=== PATIENT | male | born 1955 | race Caucasian/White ===

== ENCOUNTER 2017-04-25 23:03 | Inpatient (IN) | payer SELFPAY ==
[2017-04-25 23:36] LABS: ADD MAN DIFF? NO
[2017-04-25 23:41] LABS: BASO # 0.1 x10^3/uL (0.0-0.2); BASO % 1 % (0-3); EOS % 0 % (0-3); HEMATOCRIT 42.9 % (39.0-53.0); HEMOGLOBIN 14.5 g/dL (13.0-17.5); LYMPH # 1.6 x10^3/uL (1.0-4.8); LYMPH % 11 % (24-48); MEAN CORPUSCULAR HEMOGLOBIN 32 pg (25-35); MEAN CORPUSCULAR HGB CONC 34 g/dL (31-37); MEAN CORPUSCULAR VOLUME 96 fL (79-100); MONO # 1.2 x10^3/uL (0.0-1.1); MONO % 8 % (0-9); NEUT # 11.4 x10^3uL (1.8-7.7); NEUT % 80 % (31-73); PLATELET COUNT 260 x10^3/uL (140-400); RED BLOOD COUNT 4.48 x10^6/uL (4.30-5.70); RED CELL DISTRIBUTION WIDTH 13.3 % (11.5-14.5); WHITE BLOOD COUNT 14.3 x10^3/uL (4.0-11.0)
[2017-04-25 23:51] LABS: INFLUENZA A PATIENT NEGATIVE (NEGATIVE); INFLUENZA B PATIENT NEGATIVE (NEGATIVE); OBC FLU VALID
[2017-04-26] LABS: ANION GAP 4 (6-14); BLOOD UREA NITROGEN 14 mg/dL (8-26); BUN/CREATININE RATIO 11 (6-20); CALCIUM 8.7 mg/dL (8.5-10.1); CARBON DIOXIDE 33 mmol/L (21-32); CHLORIDE 102 mmol/L (98-107); CREATININE 1.3 mg/dL (0.7-1.3); GFR 55.9; GLUCOSE 97 mg/dL (70-99); SODIUM 139 mmol/L (136-145)
[2017-04-26 00:04] LABS: NT-PRO BNP 46 pg/mL (0-124); TROPONINI < 0.017 ng/mL (0.000-0.055)
[2017-04-26 00:04] LABS: ALBUMIN 3.3 g/dL (3.4-5.0); ALBUMIN/GLOBULIN RATIO 0.8 (1.0-1.7); ALK PHOS 45 U/L (46-116); ALT (SGPT) 32 U/L (16-63); AST (SGOT) 28 U/L (15-37); CKMB INDEX 0.5 % (0-4); CKMB MASS 2.4 ng/mL (0.0-3.6); CREATINE KINASE 504 U/L (39-308); LIPASE 135 U/L (73-393); TOTAL BILIRUBIN 0.4 mg/dL (0.2-1.0); TOTAL PROTEIN 7.5 g/dL (6.4-8.2)
[2017-04-26 00:11] LABS: LACTIC ACID 2.1 mmol/L (0.4-2.0)
[2017-04-26] MEDS: IBUPROFEN 800 MG TABLET. PO (00:14)
[2017-04-26] MEDS: ACETAMINOPHEN 500 MG TABLET PO (00:15)
[2017-04-26] MEDS: IPRATRPIUM/ALBUTEROL 0.5/2.5MG 3 ML NEBU. NEB ×4 (00:22→19:53)
[2017-04-26] MEDS: IV NORMAL SALINE 1000ML BAG 500 ML IV (00:30)
[2017-04-26] MEDS ORDERED: ONDANSETRON PF 4 MG/2 ML VIAL. IV ×2 (00:30→10:00)
[2017-04-26 01:23] LABS: LACTIC ACID 2.1 mmol/L (0.4-2.0)
[2017-04-26] MEDS: IV NORMAL SALINE 1000ML BAG 1,000 ML IV (01:35)
[2017-04-26] MEDS: AZITHROMYCIN 250 MG TABLET. PO (01:35)
[2017-04-26] MEDS ORDERED: IPRATRPIUM/ALBUTEROL 0.5/2.5MG 3 ML NEBU. NEB (04:00)
[2017-04-26] MEDS ORDERED: ACETAMINOPHEN 325 MG TABLET. PO (10:00)
[2017-04-26] MEDS ORDERED: DEXTROSE 50% 25 GM / 50ML DISP.SYRIN. IV (10:15)
[2017-04-26] MEDS: PANTOPRAZOLE 40 MG TABLET.DR. PO (10:53)
[2017-04-26] MEDS: LINAGLIPTIN 5 MG TABLET PO (10:53)
[2017-04-26] MEDS: INSULIN DETEMIR 300 UNITS/3 ML INSULN.PEN. SQ ×2 (11:06→21:11)
[2017-04-26] MEDS: INSULIN ASPART 300 UNITS/3 ML INSULN.PEN SQ ×2 (12:31→17:01)
[2017-04-26 16:40] LABS: POC GLUCOSE 188 mg/dL (70-99)
[2017-04-26 16:40] LABS: POC GLUCOSE 191 mg/dL (70-99)
[2017-04-26 16:40] LABS: POC GLUCOSE 173 mg/dL (70-99)
[2017-04-26] MEDS: glyBURIDE 5 MG TABLET PO (16:55)
[2017-04-26 20:52] LABS: POC GLUCOSE 186 mg/dL (70-99)
[2017-04-26] MEDS: LACTOBACILLUS RHAMNOSUS GG 1 CAPSULE. PO (21:08)
[2017-04-26] MEDS: BENZONATATE 100 MG CAPSULE. PO (21:49)
[2017-04-26] MEDS: ZOLPIDEM 5 MG TABLET. PO (21:49)
[2017-04-27 04:50] LABS: ADD MAN DIFF? NO
[2017-04-27 05:01] LABS: BASO % 0 % (0-3); EOS # 0.1 x10^3/uL (0.0-0.7); EOS % 1 % (0-3); HEMATOCRIT 39.4 % (39.0-53.0); HEMOGLOBIN 12.9 g/dL (13.0-17.5); LYMPH # 2.4 x10^3/uL (1.0-4.8); LYMPH % 26 % (24-48); MEAN CORPUSCULAR HEMOGLOBIN 32 pg (25-35); MEAN CORPUSCULAR HGB CONC 33 g/dL (31-37); MEAN CORPUSCULAR VOLUME 96 fL (79-100); MONO % 11 % (0-9); NEUT # 5.6 x10^3uL (1.8-7.7); NEUT % 61 % (31-73); PLATELET COUNT 223 x10^3/uL (140-400); RED BLOOD COUNT 4.09 x10^6/uL (4.30-5.70); RED CELL DISTRIBUTION WIDTH 13.5 % (11.5-14.5); WHITE BLOOD COUNT 9.2 x10^3/uL (4.0-11.0)
[2017-04-27 05:21] LABS: ANION GAP 6 (6-14); BLOOD UREA NITROGEN 17 mg/dL (8-26); CALCIUM 8.3 mg/dL (8.5-10.1); CARBON DIOXIDE 30 mmol/L (21-32); CHLORIDE 105 mmol/L (98-107); GFR 75.7; GLUCOSE 85 mg/dL (70-99); POTASSIUM 3.6 mmol/L (3.5-5.1); SODIUM 141 mmol/L (136-145)
[2017-04-27 05:56] LABS: LACTIC ACID 1.5 mmol/L (0.4-2.0)
[2017-04-27] MEDS: cefTRIAXone IV Push 1 GM VIAL. IVP (06:14)
[2017-04-27] MEDS: PANTOPRAZOLE 40 MG TABLET.DR. PO (06:18)
[2017-04-27] MEDS: IPRATRPIUM/ALBUTEROL 0.5/2.5MG 3 ML NEBU. NEB ×4 (07:40→20:10)
[2017-04-27] MEDS: INSULIN ASPART 300 UNITS/3 ML INSULN.PEN SQ ×3 (08:00→17:00)
[2017-04-27] MEDS ORDERED: AZITHROMYCIN 500 MG in IV NORMAL SALINE 250ML 250 ML IV (08:00)
[2017-04-27] MEDS: LACTOBACILLUS RHAMNOSUS GG 1 CAPSULE. PO ×2 (08:47→21:13)
[2017-04-27] MEDS: glyBURIDE 5 MG TABLET PO ×2 (08:48→17:27)
[2017-04-27] MEDS: LINAGLIPTIN 5 MG TABLET PO (08:48)
[2017-04-27] MEDS: AZITHROMYCIN 250 MG TABLET. PO (08:48)
[2017-04-27] MEDS: INSULIN DETEMIR 300 UNITS/3 ML INSULN.PEN. SQ ×2 (08:52→21:17)
[2017-04-27] MEDS ORDERED: CONTRAST GIVEN MC (10:00)
[2017-04-27] MEDS: IOHEXOL 300 MG/ML 100ML VIAL. IV (10:29)
[2017-04-27 11:14] LABS: POC GLUCOSE 235 mg/dL (70-99)
[2017-04-27 16:42] LABS: POC GLUCOSE 108 mg/dL (70-99)
[2017-04-27] MEDS: BENZONATATE 100 MG CAPSULE. PO (21:14)
[2017-04-27 21:24] LABS: POC GLUCOSE 118 mg/dL (70-99)
[2017-04-27] MEDS: ZOLPIDEM 5 MG TABLET. PO (23:34)
[2017-04-28] MEDS: cefTRIAXone IV Push 1 GM VIAL. IVP (05:42)
[2017-04-28] MEDS: PANTOPRAZOLE 40 MG TABLET.DR. PO (05:43)
[2017-04-28] MEDS: IPRATRPIUM/ALBUTEROL 0.5/2.5MG 3 ML NEBU. NEB ×4 (07:22→20:29)
[2017-04-28 08:10] LABS: POC GLUCOSE 163 mg/dL (70-99)
[2017-04-28] MEDS: glyBURIDE 5 MG TABLET PO ×2 (08:23→17:45)
[2017-04-28] MEDS: AZITHROMYCIN 250 MG TABLET. PO (08:23)
[2017-04-28] MEDS: LINAGLIPTIN 5 MG TABLET PO (08:23)
[2017-04-28] MEDS: methylPREDNISolone SOD SUCC PF 40 MG/ML VIAL. IV (08:24)
[2017-04-28] MEDS: INSULIN ASPART 300 UNITS/3 ML INSULN.PEN SQ ×5 (08:29→21:25)
[2017-04-28] MEDS: INSULIN DETEMIR 300 UNITS/3 ML INSULN.PEN. SQ ×2 (08:30→21:25)
[2017-04-28] MEDS: LACTOBACILLUS RHAMNOSUS GG 1 CAPSULE. PO ×2 (09:00→21:36)
[2017-04-28 12:13] LABS: POC GLUCOSE 123 mg/dL (70-99)
[2017-04-28 12:16] LABS: POC GLUCOSE 231 mg/dL (70-99)
[2017-04-28 17:22] LABS: POC GLUCOSE 380 mg/dL (70-99)
[2017-04-28 21:07] LABS: POC GLUCOSE 409 mg/dL (70-99)
[2017-04-28] MEDS: ZOLPIDEM 5 MG TABLET. PO (21:36)
[2017-04-29 00:15] LABS: LEGIONELLA AG UR Negative (Negative)
[2017-04-29 00:15] LABS: SPECIMEN SOURCE Urine (.); STREP PNEUMO ANTIGEN Negative (Negative)
[2017-04-29 06:16] LABS: ADD MAN DIFF? NO
[2017-04-29 06:19] LABS: BASO # 0.1 x10^3/uL (0.0-0.2); BASO % 1 % (0-3); EOS % 0 % (0-3); HEMATOCRIT 39.4 % (39.0-53.0); HEMOGLOBIN 12.8 g/dL (13.0-17.5); LYMPH # 2.2 x10^3/uL (1.0-4.8); LYMPH % 21 % (24-48); MEAN CORPUSCULAR HEMOGLOBIN 31 pg (25-35); MEAN CORPUSCULAR HGB CONC 33 g/dL (31-37); MEAN CORPUSCULAR VOLUME 97 fL (79-100); MONO # 0.9 x10^3/uL (0.0-1.1); MONO % 9 % (0-9); NEUT # 7.3 x10^3uL (1.8-7.7); NEUT % 70 % (31-73); PLATELET COUNT 273 x10^3/uL (140-400); RED BLOOD COUNT 4.07 x10^6/uL (4.30-5.70); RED CELL DISTRIBUTION WIDTH 13.3 % (11.5-14.5); WHITE BLOOD COUNT 10.5 x10^3/uL (4.0-11.0)
[2017-04-29 06:29] LABS: ANION GAP 6 (6-14); BLOOD UREA NITROGEN 22 mg/dL (8-26); CALCIUM 8.6 mg/dL (8.5-10.1); CARBON DIOXIDE 30 mmol/L (21-32); CHLORIDE 102 mmol/L (98-107); GFR 75.7; GLUCOSE 228 mg/dL (70-99); POTASSIUM 3.9 mmol/L (3.5-5.1); SODIUM 138 mmol/L (136-145)
[2017-04-29] MEDS: cefTRIAXone IV Push 1 GM VIAL. IVP (06:37)
[2017-04-29] MEDS: IPRATRPIUM/ALBUTEROL 0.5/2.5MG 3 ML NEBU. NEB ×3 (07:05→15:14)
[2017-04-29 08:14] LABS: POC GLUCOSE 204 mg/dL (70-99)
[2017-04-29] MEDS: glyBURIDE 5 MG TABLET PO (08:47)
[2017-04-29] MEDS: methylPREDNISolone SOD SUCC PF 40 MG/ML VIAL. IV (08:48)
[2017-04-29] MEDS: PANTOPRAZOLE 40 MG TABLET.DR. PO (08:48)
[2017-04-29] MEDS: LACTOBACILLUS RHAMNOSUS GG 1 CAPSULE. PO (08:48)
[2017-04-29] MEDS: AZITHROMYCIN 250 MG TABLET. PO (08:48)
[2017-04-29] MEDS: LINAGLIPTIN 5 MG TABLET PO (08:48)
[2017-04-29] MEDS: INSULIN DETEMIR 300 UNITS/3 ML INSULN.PEN. SQ (08:57)
[2017-04-29 11:58] LABS: POC GLUCOSE 301 mg/dL (70-99)
[2017-04-29] MEDS: INSULIN ASPART 300 UNITS/3 ML INSULN.PEN SQ (13:13)
[2017-04-29] MEDS ORDERED: INSULIN ASPART 300 UNITS/3 ML INSULN.PEN SQ (15:15)
== END 2017-04-29 12:28 | disposition home or self-care (01) | DRG 871 ==
LOC: ER 04-26 01:38 → 4 NORTH 04-26 00:15
DX: A41.9 Sepsis, unspecified organism (principal); J96.01 Acute respiratory failure with hypoxia; J18.9 Pneumonia, unspecified organism; E11.9 Type 2 diabetes mellitus without complications; E78.00 Pure hypercholesterolemia, unspecified; E78.5 Hyperlipidemia, unspecified; I10 Essential (primary) hypertension; Z79.84 Long term (current) use of oral hypoglycemic drugs; E66.9 Obesity, unspecified; Z68.38 Body mass index [BMI] 38.0-38.9, adult; Z71.89 Other specified counseling
CPT/HCPCS: 36415; 71045; 71260; 80048; 80053; 82553; 82962; 83605; 83690; 83880; 84484; 85025; 87040; 87070; 87205; 87449; 87804; 87804-59; 93005; 93306; 94640; 94760; 96361; 96365; 99285; 99285-25; G0238; J0690; J0696; J1815; J2920; J7030; J7620; Q0144; Q9967

== ENCOUNTER 2017-05-03 01:38 | Emergency (ER) | payer SELFPAY ==
[2017-05-03 02:38] LABS: ADD MAN DIFF? NO
[2017-05-03 02:39] LABS: BASO # 0.1 x10^3/uL (0.0-0.2); BASO % 1 % (0-3); EOS # 0.1 x10^3/uL (0.0-0.7); EOS % 1 % (0-3); HEMATOCRIT 47.3 % (39.0-53.0); HEMOGLOBIN 15.7 g/dL (13.0-17.5); LYMPH # 2.5 x10^3/uL (1.0-4.8); LYMPH % 17 % (24-48); MEAN CORPUSCULAR HEMOGLOBIN 32 pg (25-35); MEAN CORPUSCULAR HGB CONC 33 g/dL (31-37); MEAN CORPUSCULAR VOLUME 96 fL (79-100); MONO # 1.3 x10^3/uL (0.0-1.1); MONO % 9 % (0-9); NEUT # 10.5 x10^3uL (1.8-7.7); NEUT % 72 % (31-73); PLATELET COUNT 337 x10^3/uL (140-400); RED BLOOD COUNT 4.93 x10^6/uL (4.30-5.70); RED CELL DISTRIBUTION WIDTH 13.1 % (11.5-14.5); WHITE BLOOD COUNT 14.5 x10^3/uL (4.0-11.0)
[2017-05-03] MEDS: HYDROcodone/APAP 5/325MG 1 TAB TABLET PO ×2 (02:42)
[2017-05-03 03:17] LABS: ANION GAP 7 (6-14); BLOOD UREA NITROGEN 17 mg/dL (8-26); CALCIUM 8.9 mg/dL (8.5-10.1); CARBON DIOXIDE 31 mmol/L (21-32); CHLORIDE 99 mmol/L (98-107); CREATININE 1.3 mg/dL (0.7-1.3); GFR 55.9; GLUCOSE 281 mg/dL (70-99); POTASSIUM 4.3 mmol/L (3.5-5.1); SODIUM 137 mmol/L (136-145)
[2017-05-03 03:28] LABS: TROPONINI < 0.017 ng/mL (0.000-0.055)
[2017-05-03 03:30] LABS: NT-PRO BNP 62 pg/mL (0-124)
[2017-05-03] MEDS ORDERED: MORPHINE SULFATE 4 MG/ML DISP.SYRIN. IV ×2 (04:14)
[2017-05-03] MEDS: KETOROLAC 15 MG/ML VIAL. IV ×2 (05:13)
== END 2017-05-03 05:32 | disposition home or self-care (01) ==
LOC: ER 01:38
DX: R07.89 Other chest pain (principal); E78.00 Pure hypercholesterolemia, unspecified; I10 Essential (primary) hypertension
CPT/HCPCS: 36415; 71046; 80048; 83880; 84484; 85025; 93005; 96374; 99285-25; J1885

== ENCOUNTER 2017-08-23 19:13 | Emergency (ER) | payer SELFPAY ==
[2017-08-23] MEDS ORDERED: CONTRAST GIVEN. MC (20:00)
[2017-08-23 20:05] LABS: ADD MAN DIFF? NO
[2017-08-23 20:07] LABS: BASO # 0.1 x10^3/uL (0.0-0.2); BASO % 1 % (0-3); EOS # 0.1 x10^3/uL (0.0-0.7); EOS % 1 % (0-3); HEMATOCRIT 46.1 % (39.0-53.0); HEMOGLOBIN 15.4 g/dL (13.0-17.5); LYMPH # 2.2 x10^3/uL (1.0-4.8); LYMPH % 19 % (24-48); MEAN CORPUSCULAR HEMOGLOBIN 32 pg (25-35); MEAN CORPUSCULAR HGB CONC 34 g/dL (31-37); MEAN CORPUSCULAR VOLUME 96 fL (79-100); MONO # 0.8 x10^3/uL (0.0-1.1); MONO % 7 % (0-9); NEUT # 8.5 x10^3uL (1.8-7.7); NEUT % 73 % (31-73); PLATELET COUNT 252 x10^3/uL (140-400); RED BLOOD COUNT 4.82 x10^6/uL (4.30-5.70); RED CELL DISTRIBUTION WIDTH 14.1 % (11.5-14.5); WHITE BLOOD COUNT 11.7 x10^3/uL (4.0-11.0)
[2017-08-23] MEDS: MORPHINE SULFATE 4 MG/ML DISP.SYRIN. IV/SQ ×3 (20:08→21:35)
[2017-08-23 20:17] LABS: INR 1.1 (0.8-1.1); PARTIAL THROMBOPLASTIN TIME 31 SEC (24-38); PROTHROMBIN TIME PATIENT 13.9 SEC (11.7-14.0)
[2017-08-23 20:26] LABS: ANION GAP 10 (6-14); BLOOD UREA NITROGEN 24 mg/dL (8-26); BUN/CREATININE RATIO 17 (6-20); CALCIUM 9.3 mg/dL (8.5-10.1); CARBON DIOXIDE 28 mmol/L (21-32); CHLORIDE 107 mmol/L (98-107); CREATININE 1.4 mg/dL (0.7-1.3); GFR 51.2; GLUCOSE 215 mg/dL (70-99); POTASSIUM 4.4 mmol/L (3.5-5.1); SODIUM 145 mmol/L (136-145)
[2017-08-23] MEDS: IOHEXOL 300 MG/ML 100ML VIAL. IV (20:30)
[2017-08-23 20:31] LABS: ALBUMIN 3.8 g/dL (3.4-5.0); ALK PHOS 51 U/L (46-116); ALT (SGPT) 41 U/L (16-63); AST (SGOT) 26 U/L (15-37); LIPASE 145 U/L (73-393); TOTAL BILIRUBIN 0.3 mg/dL (0.2-1.0); TOTAL PROTEIN 7.7 g/dL (6.4-8.2)
[2017-08-23] MEDS: IV NORMAL SALINE 1000ML BAG 1,000 ML IV (20:35)
== END 2017-08-23 22:00 | disposition home or self-care (01) ==
LOC: ER 19:13
DX: S22.42XA Multiple fractures of ribs, left side, initial encounter for closed fracture (principal); R10.9 Unspecified abdominal pain; E11.9 Type 2 diabetes mellitus without complications; E78.00 Pure hypercholesterolemia, unspecified; I10 Essential (primary) hypertension; W01.0XXA Fall on same level from slipping, tripping and stumbling without subsequent striking against object, initial encounter; Y93.89 Activity, other specified; Y92.89 Other specified places as the place of occurrence of the external cause; Y99.8 Other external cause status
CPT/HCPCS: 36415; 71101; 74177; 80053; 83690; 85025; 85610; 85730; 96374; 96376; 99285-25; J2270; J7030; Q9967

== ENCOUNTER 2020-05-26 10:17 | Inpatient (IN) | payer MEDICARE ==
[~2020-05-26] VITALS: Ht 190.5 cm; Wt 132.3 kg
[~2020-05-26 10:17] MED LIST: ACET1TAB33 PO; AMLO-186 PO; AMLO1TAB5 PO; CHOL500016 PO; GLYB5TAB3 PO; INSU100I13 SQ; LEVO500T59 PO; LIDO700A21 TP; LISI1TAB20 PO; OXYC1TAB15 PO; RANI150C PO; SITA1TAB11 PO
[2020-05-26] MEDS ORDERED: ASPIRIN CHEWABLE 81 MG TABLET. PO ONE (10:45)
[2020-05-26 11:11] LABS: BASO # 0.1 x10^3/uL (0.0-0.2); BASO % 1 % (0-3); EOS # 0.2 x10^3/uL (0.0-0.7); EOS % 2 % (0-3); HEMATOCRIT 46.7 % (39.0-53.0); HEMOGLOBIN 15.6 g/dL (13.0-17.5); LYMPH # 2.5 x10^3/uL (1.0-4.8); LYMPH % 31 % (24-48); MEAN CORPUSCULAR HEMOGLOBIN 32 pg (25-35); MEAN CORPUSCULAR HGB CONC 33 g/dL (31-37); MEAN CORPUSCULAR VOLUME 95 fL (79-100); MONO # 0.7 x10^3/uL (0.0-1.1); MONO % 8 % (0-9); NEUT # 4.8 x10^3/uL (1.8-7.7); NEUT % 58 % (31-73); PLATELET COUNT 178 x10^3/uL (140-400); RED CELL DISTRIBUTION WIDTH 13.1 % (11.5-14.5); WHITE BLOOD COUNT 8.3 x10^3/uL (4.0-11.0)
[2020-05-26 11:15] LABS: CALCIUM 8.5 mg/dL (8.5-10.1); CREATININE 0.9 mg/dL (0.7-1.3); GFR 84.7; POTASSIUM 4.3 mmol/L (3.5-5.1)
--- NOTE | 2020-05-26 11:37 | RAD ---
Chest, PA and Lateral: Technique: PA and lateral views of the chest were obtained. History: Chest pain. Comparison: None. Findings: The heart and pulmonary vasculature appear within normal limits. The lungs are clear. The pleural ma rgins are clear. Mild degenerative changes thoracic spine. Impression: No acute chest process is seen. Electronically signed by: Ganesh Yan MD (05/26/2020 11:34 AM) [id number]
--- NOTE | 2020-05-26 12:08 | EKG ---
[facility] [address] [place] [address] Test Date: 2020-05-26 Test Time: 10:31:06 Pat Name: BLANCA LEON Department: Room: Gender: M [employer] Hel[employer]: : 1955 Requested By: JUSTIN ALARCON Order Number: [id number] Reading MD: Measurements Intervals Irving Rate: 61 P: 50 DE: 268 QRS: -90 QRSD: 130 T: 31 QT: 484 QTc: 494 Interpretive Statements SINUS RHYTHM PROLONGED DE INTERVAL ABNORMAL LEFT AXIS DEVIATION S1,S2,S3 PATTERN LEFT ANTERIOR FASCICULAR BLOCK NON SPECIFIC INTRAVENTRICULAR BLOCK QRS(T) CONTOUR ABNORMALITY CONSIDER ANTEROSEPTAL MYOCARDIAL DAMAGE ABNORMAL ECG RI6.02 No previous ECG available for comparison
--- NOTE | 2020-05-26 13:04 | ED.ADGEN ---
Past Medical History Past Medical History: Diabetes-Type II, Hypertension Additional Past Medical Histor: dyslipidemia Past Surgical History: No Surgical History Additional Past Surgical Histo: Knee Smoking Status: Never Smoker Alcohol Use: None Drug Use: None General Adult EDM: Chief Complaint: CHEST WALL PAIN HPI: HPI: Patient is 64-year-old male who presents to the emergency room complaining of chest pain. Patient states that his left-sided upper chest pain that feels like an aching pain and has been constant for 4 days. He states he got progressively worse last night and he was unable to get any sleep. He has never had pain like this previously. He states when it started he was not doing anything strenuous he was just driving in his truck. He states he has a friend who had similar pain who from a heart attack. He does have some intermittent shortness of breath. He also has some intermittent leg swelling typically in the right leg. He denies any cough, URI symptoms, fever, chills, sweats, abdominal pain, nausea, vomiting, dizziness. He has never had a cardiac evaluation previously. He does not know of any kind of cardiac history. He states he does have diabetes. Review of Systems: Review of Systems: Complete ROS is negative unless otherwise documented in HPI Current Medications: Current Medications Medications (Trade) Dose Ordered Sig/Quentin Start Time Stop Time Status Last Admin Dose Admin Aspirin (Aspirin Chewable) 324 mg 1X ONCE 05/26/20 10:45 05/26/20 10:46 DC 05/26/20 11:32 324 MG Allergies: Allergies: Allergies Coded Allergies Type Severity Reaction Last Updated Verified No Known Drug Allergies 05/03/17 No Physical Exam: PE: General: Awake, alert, NAD. Well Nourished, well hydrated. Cooperative HEENT: Atraumatic, EOMI, PERRL, airway patent, moist oral mucosa Neck: Supple, trachea midline Respiratory: CTA bilaterally, normal effort, no wheezing/crackles, left-sided chest tenderness CV: RRR, no murmur, cap refill <2 GI: Soft, nondistended, nontender, no masses MSK: No obvious deformities Skin: Warm, dry, intact Neuro: A&O x3, speech NL, sensory and motor grossly intact, no focal deficits Psych: Normal affect, normal mood, not suicidal or homicidal Current Patient Data: Labs: Laboratory Tests Test 05/26/20 11:00 White Blood Count 8.3 x10^3/uL (4.0-11.0) Red Blood Count 4.90 x10^6/uL (4.30-5.70) Hemoglobin 15.6 g/dL (13.0-17.5) Hematocrit 46.7 % (39.0-53.0) Mean Corpuscular Volume 95 fL (79-100) Mean Corpuscular Hemoglobin 32 pg (25-35) Mean Corpuscular Hemoglobin Concent 33 g/dL (31-37) Red Cell Distribution Width 13.1 % (11.5-14.5) Platelet Count 178 x10^3/uL (140-400) Neutrophils (%) (Auto) 58 % (31-73) Lymphocytes (%) (Auto) 31 % (24-48) Monocytes (%) (Auto) 8 % (0-9) Eosinophils (%) (Auto) 2 % (0-3) Basophils (%) (Auto) 1 % (0-3) Neutrophils # (Auto) 4.8 x10^3/uL (1.8-7.7) Lymphocytes # (Auto) 2.5 x10^3/uL (1.0-4.8) Monocytes # (Auto) 0.7 x10^3/uL (0.0-1.1) Eosinophils # (Auto) 0.2 x10^3/uL (0.0-0.7) Basophils # (Auto) 0.1 x10^3/uL (0.0-0.2) Sodium Level 140 mmol/L (136-145) Potassium Level 4.3 mmol/L (3.5-5.1) Chloride Level 105 mmol/L (98-107) Carbon Dioxide Level 30 mmol/L (21-32) Anion Gap 5 (6-14) L Blood Urea Nitrogen 12 mg/dL (8-26) Creatinine 0.9 mg/dL (0.7-1.3) Estimated GFR (Cockcroft-Gault) 84.7 Glucose Level 180 mg/dL (70-99) H Calcium Level 8.5 mg/dL (8.5-10.1) Troponin I Quantitative < 0.017 ng/mL (0.000-0.055) Laboratory Tests 05/26/20 11:00 Laboratory Tests 05/26/20 11:00 Vital Signs: Vital Signs Date Time Temp Pulse Resp B/P (MAP) Pulse Ox O2 Delivery O2 Flow Rate FiO2 05/26/20 10:40 98.0 57 17 147/82 (103) 97 Room Air 98.0 EKG: EKG: [] Heart Score: Risk Factors: Risk Factors: DM, Current or recent (<one month) smoker, HTN, HLP, family history of CAD, obesity. Risk Scores: Score 0 - 3: 2.5% MACE over next 6 weeks - Discharge Home Score 4 - 6: 20.3% MACE over next 6 weeks - Admit for Clinical Observation Score 7 - 10: 72.7% MACE over next 6 weeks - Early Invasive Strategies Radiology/Procedures: Radiology/Procedures: [] Course & Med Decision Making: Course & Med Decision Making Pertinent Labs and Imaging studies reviewed. (See chart for details) Patient is a 64 year-old male who presents to the Emergency Room complaining of chest pain and intermittent shortness of breath. History is significant for diabetes. At this time, given patient's risk factors and story there is concern for possible cardiac pathology. EKG was ordered and shows right bundle inocente block and bifascicular block. At this time there is no signs of STEMI, pericarditis, or unstable arrthymia on EKG. Patient has received aspirin today. CBC, BMP, troponin, CXR were ordered to evaluate for causes of chest pain including ACS, anemia, electrolyte abnormalities that can lead to arrhythmias, PTX, pneumonia, pneumomediastinum. Patient does not have any abdominal tenderness that would suggest pancreaititis or cholecystitis and does not need an abdominal work up at this time. Patient's HEART score is 5 placing the patient at moderate risk. At this time patient will be admitted for further evaluation and care. Dragon Disclaimer: Dragon Disclaimer: This electronic medical record was generated, in whole or in part, using a voice recognition dictation system. Departure Departure Impression: Primary Impression: Chest pain Disposition: ADMITTED INPT THIS HOSP Condition: STABLE Referrals: NO PCP (PCP) JUSTIN ALARCON MD May 26, 2020 13:04
--- NOTE | 2020-05-26 13:11 | RAD ---
US DPLX VENOUS EXTREMITY LOWER RT 05/26/2020 12:41 PM Clinical Information: Swelling, pain Comparison: None. Technique: Multiple grayscale, color Doppler, and spectral Doppler sonographic images of the lower ex tremity venous structures were obtained. Findings: The right common femoral, femoral, and popliteal veins exhibit normal compression, respiratory phasic ity, and augmentation. No intraluminal thrombi are identified. Color Doppler flow is demonstrated in the right posterior tibial veins. Greater saphenous veins are patent at the saphenofemoral junction. Impression: 1. No evidence of deep venous thrombosis. Electronically signed by: Reshma Blankenship MD (05/26/2020 1:08 PM) [id number]
[2020-05-26] MEDS ORDERED: BISACODYL 10 MG SUPP.RECT. PR PRN (13:15)
[2020-05-26] MEDS ORDERED: MORPHINE SULFATE 2 MG/ML VIAL. IV PRN (13:15)
[2020-05-26] MEDS ORDERED: ONDANSETRON PF 4 MG/2 ML VIAL. IVP PRN (13:15)
[2020-05-26] MEDS ORDERED: MAGNESIUM HYDROXIDE 2,400 MG/30 ML ORAL.SUSP. PO PRN (13:15)
[2020-05-26] MEDS ORDERED: CALCIUM CARBONATE 500 MG TAB.CHEW PO PRN (13:15)
[2020-05-26] MEDS ORDERED: IBUPROFEN 400 MG TABLET. PO PRN (13:15)
[2020-05-26] MEDS ORDERED: ACETAMINOPHEN 325 MG TABLET. PO PRN (13:15)
[2020-05-26] MEDS ORDERED: ZOLPIDEM 5 MG TABLET. PO PRN (13:15)
--- NOTE | 2020-05-26 13:29 | PDOC1 ---
History and Physical Date of Admission Date of Admission DATE: 05/26/20 TIME: 13:22 Identification/Chief Complaint Chief Complaint Chest pain Source Source: Caregiver, Patient History of Present Illness History of Present Illness Patient is a 64-year-old male with past medical history DM2, hypertension, who presents to the ER with complaint of worsening intermittent chest pain for the past 4-5 days. He states his pain is aggravated by deep inspiration, coughing, and notes his chest pain is reproducible. He has a history of bilateral lower extremity swelling, right greater than left, for years. He denies any trauma. EKG in the ED concerning for left axis deviation and left anterior fascicular block. Initial troponin <0.017. Will admit patient for further medical management. Past Medical History Cardiovascular: HTN Endocrine: Diabetes Past Surgical History Past Surgical History: No pertinent history Family History Family History: Family History Unknown Social History Smoke: No ALCOHOL: none Drugs: None Current Problem List Problem List Problems Medical Problems: (1) Chest pain Status: Acute Current Medications Current Medications Current Medications Aspirin (Aspirin Chewable) 324 mg 1X ONCE PO Last administered on 05/26/20at 11:32; Start 05/26/20 at 10:45; Stop 05/26/20 at 10:46; Status DC Active Scripts Active Lidocaine 1 Each Adh..patch 1 Each TP EDNA 14 Days Percocet 5-325 Mg Tablet (Oxycodone/Acetaminophen) 1 Each Tablet 1-2 Tab PO Q4- 6HRS Acetaminophen-Cod #3 Tablet (Acetaminophen/Codeine Phosphate) 1 Each Tablet 1 Tab PO PRN Q6HRS PRN 2 Days Levaquin (Levofloxacin) 500 Mg Tablet 1 Tab PO DAILY Reported Vitamin D3 (Cholecalciferol (Vitamin D3)) 5,000 Unit Tablet 1 Tab PO DAILY Ranitidine Hcl 150 Mg Capsule 1 Cap PO BID Lisinopril-Hctz 20-25 Mg Tab (Lisinopril/Hydrochlorothiazide) 1 Each Tablet 1 Tab PO DAILY Lantus Solostar (Insulin Glargine,Hum.rec.anlog) 100 Unit/1 Ml Insuln.pen 62 Unit SQ BID Janumet 50-1,000 Mg Tablet (Sitagliptin Phos/Metformin Hcl) 1 Each Tablet 1 Tab PO BID Glyburide 5 Mg Tablet 1 Tab PO BID Caduet 5 Mg-40 Mg Tablet (Amlodipine/Atorvastatin) 1 Each Tablet 1 Each PO 1X Amlodipine Besylate 5 Mg Tablet 5 Mg PO DAILYWSUP Allergies Allergies: Coded Allergies: No Known Drug Allergies (Unverified , 05/03/17) ROS Review of System GENERAL: No history of weight change, weakness or fevers. SKIN: No bruising, hair changes or rashes. EYES: No blurred, double or loss of vision. NOSE AND THROAT: No history of nosebleeds, hoarseness or sore throat. HEART: Chest pain. Denies palpitations. LUNGS: Denies cough, hemoptysis, wheezing or shortness of breath. GASTROINTESTINAL: Denies nausea, vomiting, abdominal pain. GENITOURINARY: Denies dysuria, frequency, urgency, hematuria. NEUROLOGIC: Denies history of numbness, tingling, tremor or weakness. PSYCHIATRIC: Denies anxiety, denies depression. ENDOCRINE: No history of heat or cold intolerance, polyuria or polydipsia. EXTREMITIES: Bilateral lower extremity swelling. Denies muscle weakness, joint pain, pain on walking or stiffness. Physical Exam Physical Exam General: Alert, Oriented X3, Cooperative, No acute distress HEENT: PERRLA, EOMI Lungs: Clear to auscultation, Normal air movement Heart: RRR, no murmurs Cardiovascular: S1, S2 Abdomen: Normal bowel sounds, Soft, No tenderness Extremities: 2+ bilateral lower extremity edema. No clubbing, No cyanosis Skin: No rashes, No significant lesion Neuro: Normal speech, Normal tone, Sensation intact Psych/Mental Status: Mental status NL, Mood NL Vitals Vitals Vital Signs Date Time Temp Pulse Resp B/P (MAP) Pulse Ox O2 Delivery O2 Flow Rate FiO2 05/26/20 10:40 98.0 57 17 147/82 (103) 97 Room Air 98.0 Labs Labs Laboratory Tests Test 05/26/20 11:00 White Blood Count 8.3 x10^3/uL (4.0-11.0) Red Blood Count 4.90 x10^6/uL (4.30-5.70) Hemoglobin 15.6 g/dL (13.0-17.5) Hematocrit 46.7 % (39.0-53.0) Mean Corpuscular Volume 95 fL (79-100) Mean Corpuscular Hemoglobin 32 pg (25-35) Mean Corpuscular Hemoglobin Concent 33 g/dL (31-37) Red Cell Distribution Width 13.1 % (11.5-14.5) Platelet Count 178 x10^3/uL (140-400) Neutrophils (%) (Auto) 58 % (31-73) Lymphocytes (%) (Auto) 31 % (24-48) Monocytes (%) (Auto) 8 % (0-9) Eosinophils (%) (Auto) 2 % (0-3) Basophils (%) (Auto) 1 % (0-3) Neutrophils # (Auto) 4.8 x10^3/uL (1.8-7.7) Lymphocytes # (Auto) 2.5 x10^3/uL (1.0-4.8) Monocytes # (Auto) 0.7 x10^3/uL (0.0-1.1) Eosinophils # (Auto) 0.2 x10^3/uL (0.0-0.7) Basophils # (Auto) 0.1 x10^3/uL (0.0-0.2) Sodium Level 140 mmol/L (136-145) Potassium Level 4.3 mmol/L (3.5-5.1) Chloride Level 105 mmol/L (98-107) Carbon Dioxide Level 30 mmol/L (21-32) Anion Gap 5 (6-14) Blood Urea Nitrogen 12 mg/dL (8-26) Creatinine 0.9 mg/dL (0.7-1.3) Estimated GFR (Cockcroft-Gault) 84.7 Glucose Level 180 mg/dL (70-99) Calcium Level 8.5 mg/dL (8.5-10.1) Troponin I Quantitative < 0.017 ng/mL (0.000-0.055) Laboratory Tests Test 05/26/20 11:00 White Blood Count 8.3 x10^3/uL (4.0-11.0) Red Blood Count 4.90 x10^6/uL (4.30-5.70) Hemoglobin 15.6 g/dL (13.0-17.5) Hematocrit 46.7 % (39.0-53.0) Mean Corpuscular Volume 95 fL (79-100) Mean Corpuscular Hemoglobin 32 pg (25-35) Mean Corpuscular Hemoglobin Concent 33 g/dL (31-37) Red Cell Distribution Width 13.1 % (11.5-14.5) Platelet Count 178 x10^3/uL (140-400) Neutrophils (%) (Auto) 58 % (31-73) Lymphocytes (%) (Auto) 31 % (24-48) Monocytes (%) (Auto) 8 % (0-9) Eosinophils (%) (Auto) 2 % (0-3) Basophils (%) (Auto) 1 % (0-3) Neutrophils # (Auto) 4.8 x10^3/uL (1.8-7.7) Lymphocytes # (Auto) 2.5 x10^3/uL (1.0-4.8) Monocytes # (Auto) 0.7 x10^3/uL (0.0-1.1) Eosinophils # (Auto) 0.2 x10^3/uL (0.0-0.7) Basophils # (Auto) 0.1 x10^3/uL (0.0-0.2) Sodium Level 140 mmol/L (136-145) Potassium Level 4.3 mmol/L (3.5-5.1) Chloride Level 105 mmol/L (98-107) Carbon Dioxide Level 30 mmol/L (21-32) Anion Gap 5 (6-14) Blood Urea Nitrogen 12 mg/dL (8-26) Creatinine 0.9 mg/dL (0.7-1.3) Estimated GFR (Cockcroft-Gault) 84.7 Glucose Level 180 mg/dL (70-99) Calcium Level 8.5 mg/dL (8.5-10.1) Troponin I Quantitative < 0.017 ng/mL (0.000-0.055) Images Images Chest, PA and Lateral: Technique: PA and lateral views of the chest were obtained. History: Chest pain. Comparison: None. Findings: The heart and pulmonary vasculature appear within normal limits. The lungs are clear. The pleural margins are clear. Mild degenerative changes thoracic spine. Impression: No acute chest process is seen. VTE Prophylaxis Ordered VTE Prophylaxis Devices: No VTE Pharmacological Prophylaxi: Yes Assessment/Plan Assessment/Plan Chest pain DM2 Hypertension Plan: Initial troponin <0.017; continue to trend troponins. EKG concerning for left axis deviation and left anterior fascicular block; consult placed to cardiology Echocardiogram from 2018 showed EF 60% with grade 1 diastolic dysfunction; will order limited echocardiogram to evaluate Morphine, nitroglycerin as needed Lipid panel pending Ultrasound right lower extremities pending to rule out DVT Resume home medications FEN - Cardiac diet PPX - Heparin FULL CODE Dispo - inpatient for above Justifications for Admission Chest Pain Indications Chest pain indicative of: Acute [place] Other Justification KALLI TUCKER MD May 26, 2020 13:29
[2020-05-26] MEDS ORDERED: NITROGLYCERIN SUBLINGUAL 0.4 MG BOTTLE OF 25. SL PRN (13:30)
[2020-05-26] MEDS ORDERED: MORPHINE SULFATE 4 MG/ML VIAL. IV PRN (13:30)
[2020-05-26 13:56] LABS: CHOLESTEROL/HDL RATIO 3.5
[2020-05-26 14:15] VITALS: BP 147/78
[2020-05-26] MEDS ORDERED: DEXTROSE 50% 25 GM / 50ML DISP.SYRIN. IV PRN (16:45)
[2020-05-26] MEDS: INSULIN LISPRO 300 UNITS/3 ML VIAL. SQ SCH (17:00)
[2020-05-26] MEDS: HEPARIN for SUB-Q USE 5,000 UNIT/ML VIAL. SQ SCH ×2 (17:04→20:54)
[2020-05-26 19:00] VITALS: BP 163/84
[2020-05-26] MEDS ORDERED: LABETALOL 20 MG/4 ML DISP.SYRIN. IVP PRN (19:15)
[2020-05-26] MEDS: INSULIN GLARGINE SYRINGE. SQ SCH (20:54)
[2020-05-26] MEDS ORDERED: ATORVASTATIN CALCIUM 40 MG TABLET. PO SCH (21:00)
[2020-05-26] MEDS ORDERED: INSULIN GLARGINE SYRINGE. SQ SCH (21:00)
[2020-05-26 23:00] VITALS: BP 155/74
[2020-05-27 02:54] VITALS: BP 134/70
[2020-05-27] MEDS: HEPARIN for SUB-Q USE 5,000 UNIT/ML VIAL. SQ SCH ×2 (05:17→14:00)
[2020-05-27 07:17] LABS: HEMOGLOBIN A1C 12.8 % (4.8-5.6)
[2020-05-27 07:34] VITALS: BP 131/72
[2020-05-27] MEDS: INSULIN GLARGINE SYRINGE. SQ SCH (08:28)
[2020-05-27] MEDS: INSULIN LISPRO 300 UNITS/3 ML VIAL. SQ SCH ×3 (08:28→17:00)
--- NOTE | 2020-05-27 08:42 | PDOC ---
[facility] PROGRESS NOTE Date of Service DOS: DATE: 05/27/20 TIME: 08:32 Chief Complaint Chief Complaint Chest pain - GERD with costochondritis and pulled left pectoralis major DM2 - A1c 12.8 Hypertension Morbid obesity Plan: EKG concerning for left axis deviation and left anterior fascicular block looks to be LBBB as well; consult placed to cardiology Echocardiogram from 2018 showed EF 60% with grade 1 diastolic dysfunction; will order limited echocardiogram to evaluate Morphine, nitroglycerin as needed Lipid panel pending Ultrasound right lower extremities ruled out DVT Resume home medications FEN - Cardiac diet PPX - Heparin FULL CODE Dispo - inpatient for above History of Present Illness History of Present Illness Mr Pino is a 64-year-old male with past medical history DM2, hypertension, who presents to the ER with complaint of worsening intermittent chest pain for the past 4-5 days. He states his pain is aggravated by deep inspiration, coughing, and notes his chest pain is reproducible. He has a history of bilateral lower extremity swelling, right greater than left, for years. He denies any trauma. EKG in the ED concerning for left axis deviation and left anterior fascicular block. Initial troponin <0.017. Admitted patient for further medical management. Troponins remain negative. Hemoglobin A1c returned at 12.8. Pain is physically reproducible consistent with costochondritis. Also with subjective history of GERD. He notes to me that he does follow-up with Dr. Mirza and had an normal visit within the last year and a coronary angiogram within the last 2 years with no interventions necessary. He follows up with Dr. Mirza annually. No overnight telemetry events. Echo read pending. Vitals/I&O Vitals/I&O: Vital Signs Date Time Temp Pulse Resp B/P (MAP) Pulse Ox O2 Delivery O2 Flow Rate FiO2 05/27/20 08:16 56 131/72 05/27/20 07:34 97.7 20 96 Room Air 97.7 I & O 05/26/20 05/26/20 05/27/20 15:00 23:00 07:00 Intake Total 300 ml 300 ml Balance 300 ml 300 ml Physical Exam General: Alert, Oriented X3, Cooperative Heart: Regular rate, Normal S1, Normal S2 Lungs: Clear Abdomen: Normal bowel sounds, Soft Extremities: No clubbing, No cyanosis Skin: No rashes, No breakdown Labs Labs: Laboratory Tests Test 3/1/21 11:00 05/26/20 11:20 05/26/20 14:40 05/26/20 16:51 White Blood Count 8.3 x10^3/uL (4.0-11.0) Red Blood Count 4.90 x10^6/uL (4.30-5.70) Hemoglobin 15.6 g/dL (13.0-17.5) Hematocrit 46.7 % (39.0-53.0) Mean Corpuscular Volume 95 fL (79-100) Mean Corpuscular Hemoglobin 32 pg (25-35) Mean Corpuscular Hemoglobin Concent 33 g/dL (31-37) Red Cell Distribution Width 13.1 % (11.5-14.5) Platelet Count 178 x10^3/uL (140-400) Neutrophils (%) (Auto) 58 % (31-73) Lymphocytes (%) (Auto) 31 % (24-48) Monocytes (%) (Auto) 8 % (0-9) Eosinophils (%) (Auto) 2 % (0-3) Basophils (%) (Auto) 1 % (0-3) Neutrophils # (Auto) 4.8 x10^3/uL (1.8-7.7) Lymphocytes # (Auto) 2.5 x10^3/uL (1.0-4.8) Monocytes # (Auto) 0.7 x10^3/uL (0.0-1.1) Eosinophils # (Auto) 0.2 x10^3/uL (0.0-0.7) Basophils # (Auto) 0.1 x10^3/uL (0.0-0.2) Sodium Level 140 mmol/L (136-145) Potassium Level 4.3 mmol/L (3.5-5.1) Chloride Level 105 mmol/L (98-107) Carbon Dioxide Level 30 mmol/L (21-32) Anion Gap 5 (6-14) Blood Urea Nitrogen 12 mg/dL (8-26) Creatinine 0.9 mg/dL (0.7-1.3) Estimated GFR (Cockcroft-Gault) 84.7 Glucose Level 180 mg/dL (70-99) Calcium Level 8.5 mg/dL (8.5-10.1) Troponin I Quantitative < 0.017 ng/mL (0.000-0.055) < 0.017 ng/mL (0.000-0.055) Hemoglobin A1c 12.8 % (4.8-5.6) Triglycerides Level 87 mg/dL (0-150) Cholesterol Level 110 mg/dL (0-200) LDL Cholesterol, Calculated 62 mg/dL (0-100) VLDL Cholesterol, Calculated 17 mg/dL (0-40) Non-HDL Cholesterol Calculated 79 mg/dL (0-129) HDL Cholesterol 31 mg/dL (40-60) Cholesterol/HDL Ratio 3.5 Glucose (Fingerstick) 136 mg/dL (70-99) Test 05/26/20 16:55 05/26/20 19:25 05/27/20 07:37 Troponin I Quantitative < 0.017 ng/mL (0.000-0.055) Glucose (Fingerstick) 259 mg/dL (70-99) 230 mg/dL (70-99) Assessment and Plan Assessmemt and Plan Problems Medical Problems: (1) Chest pain Status: Acute Comment Review of Relevant I have reviewed the following items kevin (where applicable) has been applied. Medications: Current Medications Medications (Trade) Dose Ordered Sig/Quentin Route PRN Reason Start Time Stop Time Status Last Admin Dose Admin Aspirin (Aspirin Chewable) 324 mg 1X ONCE PO 05/26/20 10:45 05/26/20 10:46 DC 05/26/20 11:32 Heparin Sodium (Porcine) (Heparin Sodium) 5,000 unit Q8HRS SQ 05/26/20 14:00 05/27/20 05:17 Amlodipine Besylate (Norvasc) 5 mg DAILY PO 05/27/20 09:00 05/27/20 08:16 Atorvastatin Calcium (Lipitor) 40 mg QHS PO 05/26/20 21:00 05/26/20 20:55 Insulin Glargine (Lantus Syringe) 16 unit BID SQ 05/26/20 21:00 05/27/20 08:28 Insulin Human Lispro (HumaLOG) 9 units TIDWMEALS SQ 05/26/20 17:00 05/27/20 08:28 Justifications for Admission Chest Pain Indications Chest pain indicative of: Acute [place] Other Justification SARAH PALACIOS MD May 27, 2020 08:41
--- NOTE | 2020-05-27 08:57 | CARD ---
MR#: [id number] Date of Study: 05/26/2020 Ordering Physician: KALLI TUCKER, Referring Physician: KALLI TUCKER, Tech: Chayito Barreto RDCS APPROVED REPORT EXAM: Two-dimensional and M-mode echocardiogram with Doppler and color Doppler. Other Information Quality : Fair Rhythm : Bradycardia INDICATION Peripheral Edema Chest Pain RISK FACTORS Obesity 2D DIMENSIONS RVDd3.5 (2.9-3.5cm)Left Atrium(2D)3.8 (1.6-4.0cm) IVSd1.2 (0.7-1.1cm)Aortic Root(2D)2.8 (2.0-3.7cm) LVDd4.7 (3.9-5.9cm)LVOT Diameter2.4 (1.8-2.4cm) PWd1.3 (0.7-1.1cm)LVDs3.6 (2.5-4.0cm) FS (%) 24.1 %SV49.2 ml LVEF(%)45.0 (>50%) Aortic Valve AoV Peak Bijan.119.6cm/sAoV VTI24.1cm AO Peak GR.5.7mmHgLVOT Peak Bijan.89.6cm/s AO Mean GR.4mmHgAVA (VMAX)3.50cm2 LALI (VTI)3.55kw3XU P 1/2 Xymd534ml Mitral Valve MV E Carmqjgm04.4cm/sMV DECEL IKKK681ii MV A Idifruou81.5cm/sE/A Ratio0.9 Tricuspid Valve TR P. Hpgmwauq069mv/sRAP VDPWUUBA1kvEj TR Peak Gr.47phSaBVSB75mbYz Pulmonary Vein S1 Wdpumbia16.6cm/sD2 Imedsvws40.5cm/s LEFT VENTRICLE The left ventricle is normal size. There is mild concentric left ventricular hypertrophy. Left ventri lindsey systolic function is mildly impaired. The Ejection Fraction is 40-45%. There is global hypokinesi s of the left ventricle. Transmitral Doppler flow pattern is Grade I-abnormal relaxation pattern. RIGHT VENTRICLE The right ventricle is normal size. The right ventricular systolic function is normal. ATRIA The left atrium size is normal. The right atrium size is normal. The interatrial septum is intact wit h no evidence for an atrial septal defect or patent foramen ovale as noted on 2-D or Doppler imaging. AORTIC VALVE The aortic valve is calcified but opens well. Doppler and Color Flow revealed mild aortic regurgitati on. There is no significant aortic valvular stenosis. MITRAL VALVE The mitral valve is calcified but opens well. Mitral annular calcification is mild. There is no evide nce of mitral valve prolapse. There is no mitral valve stenosis. Doppler and Color-flow revealed trac e mitral regurgitation. TRICUSPID VALVE The tricuspid valve is normal in structure and function. Doppler and Color Flow revealed trace tricus pid valve regurgitation noted. The PA pressure was estimated at 15 mmHg. There is no tricuspid valve stenosis. PULMONIC VALVE The pulmonic valve is not well visualized. Doppler and Color Flow revealed trace pulmonic valvular re gurgitation. There is no pulmonic valvular stenosis. GREAT VESSELS The aortic root is normal in size. The ascending aorta is normal in size. The IVC is normal in size a nd collapses >50% with inspiration. PERICARDIAL EFFUSION There is no evidence of significant pericardial effusion. Critical Notification Critical Value: No <Conclusion> Left ventricle systolic function is mildly impaired. The Ejection Fraction is 40-45%. Transmitral Doppler flow pattern is Grade I-abnormal relaxation pattern. Mild aortic regurgitation. Trace mitral regurgitation. Trace tricuspid valve regurgitation noted. The PA pressure was estimated at 15 mmHg. There is no evidence of significant pericardial effusion. Signed by : Burak Scott, Electronically Approved : 05/27/2020 08:56:57
[2020-05-27] MEDS ORDERED: amLODIPine BESYLATE 5 MG TABLET PO SCH (09:00)
--- NOTE | 2020-05-27 09:05 | PDOC2 ---
MARK RIVERA CROP ROLLER 05/27/20 0905: CARDIAC CONSULT DATE OF CONSULT Date of Consult DATE: 05/27/20 TIME: 08:49 REASON FOR CONSULT Reason for Consult: chest pain REFERRING PHYSICIAN Referring Physician: Opal SOURCE Source: Chart review, Patient HISTORY OF PRESENT ILLNESS HISTORY OF PRESENT ILLNESS This is a pleasant 64 yo male admitted for complains of chest pain. Reports that this has been going on in the last 4-5 days. Feels sharp and nagging at times. No heartburn and sometimes it occurs when moving around however he has been having soa with exertion and has been having leg swelling and waking multiple times at night and SOA when laying flat. No prior falls or injury. He does feels sleepy during the day. He has had an abnormal MPI in the past noting it in the RCA territory but no follow up LHC was done. His last LHC was in 2012 which he had normal coronaries accdg to cardiology. 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 His BG has not been controlled. PAST MEDICAL HISTORY Cardiovascular: CAD, HTN, Hyperlipidemia Pulmonary: No pertinent hx CENTRAL NERVOUS SYSTEM: Other (No pertinent history) GI: GERD Heme/Onc: No pertinent hx Hepatobiliary: No pertinent hx Psych: No pertinent hx Musculoskeletal: Osteoarthritis Rheumatologic: No pertinent hx Infectious disease: No pertinent hx ENT: No pertinent hx Renal/: No pertinent hx Endocrine: No pertinent hx Dermatology: No pertinent hx PAST SURGICAL HISTORY Past Surgical History: Arthroscopy (right), Other (LHC) FAMILY HISTORY Family History noncontributory to CV SOCIAL HISTORY Smoke: No ALCOHOL: none Drugs: None Lives: Alone CURRENT MEDICATIONS CURRENT MEDICATIONS Current Medications Medications (Trade) Dose Ordered Sig/Quentin Route PRN Reason Start Time Stop Time Status Last Admin Dose Admin Aspirin (Aspirin Chewable) 324 mg 1X ONCE PO 05/26/20 10:45 05/26/20 10:46 DC 05/26/20 11:32 Heparin Sodium (Porcine) (Heparin Sodium) 5,000 unit Q8HRS SQ 05/26/20 14:00 05/27/20 05:17 Amlodipine Besylate (Norvasc) 5 mg DAILY PO 05/27/20 09:00 05/27/20 08:16 Atorvastatin Calcium (Lipitor) 40 mg QHS PO 05/26/20 21:00 05/26/20 20:55 Insulin Glargine (Lantus Syringe) 16 unit BID SQ 05/26/20 21:00 05/27/20 08:28 Insulin Human Lispro (HumaLOG) 9 units TIDWMEALS SQ 05/26/20 17:00 05/27/20 08:28 ALLERGIES ALLERGIES: Coded Allergies: No Known Drug Allergies (Unverified , 05/03/17) ROS Review of System 14 point ROS evaluated with pertinent positives noted per HPI PHYSICAL EXAM General: Alert, Oriented X3, Cooperative, No acute distress HEENT: Atraumatic, Mucous membr. moist/pink Lungs: Clear to auscultation, Normal air movement Heart: Regular rate (SR), Normal S1, Normal S2, No murmurs Abdomen: Soft, No tenderness Extremities: No cyanosis, No edema Skin: No breakdown, No significant lesion Neuro: Normal speech, Sensation intact Psych/Mental Status: Mental status NL, Mood NL MUSCULOSKELETAL: Osteoarthritic changes both hands VITALS/I&O VITALS/I&O: Vital Signs Date Time Temp Pulse Resp B/P (MAP) Pulse Ox O2 Delivery O2 Flow Rate FiO2 05/27/20 08:16 56 131/72 05/27/20 07:34 97.7 20 96 Room Air 97.7 I & O 05/26/20 05/26/20 05/27/20 15:00 23:00 07:00 Intake Total 300 ml 300 ml Balance 300 ml 300 ml LABS Lab: Laboratory Tests Test 05/26/20 11:00 05/26/20 11:20 05/26/20 14:40 05/26/20 16:51 White Blood Count 8.3 x10^3/uL (4.0-11.0) Red Blood Count 4.90 x10^6/uL (4.30-5.70) Hemoglobin 15.6 g/dL (13.0-17.5) Hematocrit 46.7 % (39.0-53.0) Mean Corpuscular Volume 95 fL (79-100) Mean Corpuscular Hemoglobin 32 pg (25-35) Mean Corpuscular Hemoglobin Concent 33 g/dL (31-37) Red Cell Distribution Width 13.1 % (11.5-14.5) Platelet Count 178 x10^3/uL (140-400) Neutrophils (%) (Auto) 58 % (31-73) Lymphocytes (%) (Auto) 31 % (24-48) Monocytes (%) (Auto) 8 % (0-9) Eosinophils (%) (Auto) 2 % (0-3) Basophils (%) (Auto) 1 % (0-3) Neutrophils # (Auto) 4.8 x10^3/uL (1.8-7.7) Lymphocytes # (Auto) 2.5 x10^3/uL (1.0-4.8) Monocytes # (Auto) 0.7 x10^3/uL (0.0-1.1) Eosinophils # (Auto) 0.2 x10^3/uL (0.0-0.7) Basophils # (Auto) 0.1 x10^3/uL (0.0-0.2) Sodium Level 140 mmol/L (136-145) Potassium Level 4.3 mmol/L (3.5-5.1) Chloride Level 105 mmol/L (98-107) Carbon Dioxide Level 30 mmol/L (21-32) Anion Gap 5 (6-14) L Blood Urea Nitrogen 12 mg/dL (8-26) Creatinine 0.9 mg/dL (0.7-1.3) Estimated GFR (Cockcroft-Gault) 84.7 Glucose Level 180 mg/dL (70-99) H Calcium Level 8.5 mg/dL (8.5-10.1) Troponin I Quantitative < 0.017 ng/mL (0.000-0.055) < 0.017 ng/mL (0.000-0.055) Hemoglobin A1c 12.8 % (4.8-5.6) H Triglycerides Level 87 mg/dL (0-150) Cholesterol Level 110 mg/dL (0-200) LDL Cholesterol, Calculated 62 mg/dL (0-100) VLDL Cholesterol, Calculated 17 mg/dL (0-40) Non-HDL Cholesterol Calculated 79 mg/dL (0-129) HDL Cholesterol 31 mg/dL (40-60) L Cholesterol/HDL Ratio 3.5 Glucose (Fingerstick) 136 mg/dL (70-99) H Test 05/26/20 16:55 05/26/20 19:25 05/27/20 07:37 Troponin I Quantitative < 0.017 ng/mL (0.000-0.055) Glucose (Fingerstick) 259 mg/dL (70-99) H 230 mg/dL (70-99) H Laboratory Tests 05/26/20 11:00 Laboratory Tests 05/26/20 11:00 STRESS TEST STRESS TEST 06/02/2018 [facility] INDICATIONS FOR STUDY (HISTORY): This is a 62 year old male with a history of Hypertension and Diabetes. The patient has recently been experiencing chest pain. This study is being done to rule out significant myocardial ischemia. PROCEDURAL DETAILS: Initially, the patient received a 5 ml intravenous infusion of Regadenoson at 0.08 mg/ml over 10 to 15 seconds. Approximately 20 seconds later 2.51 mCi of [id number] was injected intravenously. Throughout the infusion continuous electrocardiographic monitoring and serial electrocardiograms were obtained, as well as intermittent blood pressure recordings. Gated upright D-SPECT tomographic images were then acquired approximately 5 minutes after discontinuation of the regadenoson infusion. When indicated supine D-SPECT images were also obtained. The patient returned in approximately 4 hours and received an additional intravenous injection of 0.55 mCi of [id number] Chloride as a reinjected dose to assist in the detection of myocardial ischemia and viability. Images were then reacquired and compared to post stress images. FINDINGS: Pharmacological Stress Electrocardiogram: The patient's resting heart rate was 63 bpm and the resting blood pressure was 134/76. The patients peak stress heart rate was 85 bpm and the peak stress blood pressure was 134/60. The patient experienced slight shortness of breath. The resting ECG shows Sinus rhythm with right bundle branch block. Following Regadenoson infusion there are no new diagnostic ECG changes. Conclusion: Pharmacologic stress ECG is negative for ischemia. Xnklrdcbk-xt-Kapcncyheu Count Ratio: 0.38 (normal = or < 0.52). Scintigraphic Findings: Raw images reveal the left ventricular cavity is normal in size. There is normal pulmonary tracer uptake. There is a significant degree of diaphragmatic and soft tissue attenuation present. No transient ischemic d ilation is present. Tomographic images were reconstructed in three orthogonal views. There is decre ased nuclear tracer count noted in the inferior and inferolateral wall in both stress and rest image acquisitions. However, there are no definite reversible perfusion defects. All myocardial segments appear viable. Polar coordinate map identifies perfusion abnormalities in the mid to apical inferolateral and anterolateral segments. TID Ratio: 0.94 (normal <1.36). Summed Stress Score: 6 , Summed Rest Score: 6 Regional Wall Thickening and Motion Post Stress: There is mild inferior and inferolateral wall hypokinesis. Left Ventricular Ejection Fraction = 48 %. Left Ventricular End Diastolic Volume: 119 mL SUMMARY/OPINION: This study is abnormal. There is moderate sized, mostly fixed perfusion defect in inferior and inferolateral wall, which could be suggestive of prior myocardial injury in RCA territory. However, there is significant diaphragmatic and soft tissue attenuation in the current study which could decrease the specificity of these findings. Overall, left ventricular systolic function is mildly reduced with mild inferior and inferolateral hypokinesis. There are otherwise no high risk prognostic indicators present. The ECG portion of the study is negative for ischemia. Comparison is made with a prior [facility] study completed 10/02/2012. Ejection fraction was 47 %. There was a small area of mild to moderate intensity, partially fixed, partially reversible, inferior perfusion abnormality from apex to base suggestive of injury pattern in the right coronary artery distribution. Overall, the perfusion pattern appears similar in the current study. ASSESSMENT/PLAN ASSESSMENT/PLAN 1. Chest pain: mixed features 2. Presumed CAD: abnormal MPI 05/2018 3. Cardiomyopathy: EF at 45% 4. HTN: controlled 5. HLP 6. Mild acute on chronic diastolic/systolic CHF 7. Suspect EVELIO 8. Obesity 9. Uncontrolled DM2: A1C 2.8 10. Asymptomatic SB: lowest mid 40s Recommendations 1. Discussed about ischemic workup given his significant risk factors and CANTU a nd would like to proceed with [facility]. Risks and benefits discussed and agreeable to proceed. 2. ASA. GDMT per LHC findings. 3. DM treatment optimization per PCP 4. Consider outpt EVELIO workup 5. TSH and lipids NEVILLE HANNA MD 05/27/20 1433: CARDIAC CONSULT ASSESSMENT/PLAN ASSESSMENT/PLAN Patient seen and examined. Agree with SEAT SCOOPER MACHINE's assessment and plan. Plan for cardiac catheterization for definitive evaluation as stated above. 2D echo showed LVEF 45%. Patient is asymmetric edema worse at the end of the day is suspicious for venous insufficiency. Further work-up could be considered as an outpatient. Optimize treatment for diabetes per IM. Thank you for your consultation MARK RIVERA APRN May 27, 2020 09:05 NEVILLE HANNA MD May 27, 2020 14:33
[2020-05-27 10:36] VITALS: BP 146/85
--- NOTE | 2020-05-27 12:15 | NUR ---
SS following for discharge planning. SS reviewed pt chart and discussed with pt RN. Pt is from home and is currently on room air. COVID19 negative. Pt being scheduled for heart cath today. SS will continue to follow for discharge planning.
[2020-05-27] MEDS ORDERED: LIDOCAINE 1% PF 2 ML VIAL. ONE (12:43)
[2020-05-27] MEDS ORDERED: IOHEXOL 300 MG/ML 100ML VIAL. ONE (12:43)
[2020-05-27] MEDS ORDERED: VERAPAMIL 5 MG/2 ML VIAL. ONE (12:57)
[2020-05-27] MEDS ORDERED: HEPARIN for IV BOLUS 10,000 UNIT/10 ML VIAL. ONE (12:57)
[2020-05-27] MEDS ORDERED: fentaNYL PF VIAL 100 MCG/2 ML VIAL ONE (12:57)
[2020-05-27] MEDS ORDERED: MIDAZOLAM HCL/PF 2 MG/2 ML VIAL. ONE ×2 (12:57→13:23)
[2020-05-27] MEDS ORDERED: NITROGLYCERIN 200 MCG/2 ML SYRINGE FOR CATH/VASC LAB. ONE (12:58)
--- NOTE | 2020-05-27 13:22 | PDOC ---
MODERATE SEDATION ASSESSMENT RISKS/ALTERNATIVES Risks/Alternatives Risks and alternatives of this type of sedation and procedure discussed with: RISK/ALTERNATIVES: Patient H & P ON CHART H & P H & P on chart and reviewed for co-morbid conditions and appropriate labs. H&P ON CHART: Yes STATUS PREG STATUS ASSESSED: N/A MEDS/ALLERGIES REVIEWED Meds/Allergies Reviewed Medications and Allergies including time and route of recently administered narcotics and sedatives. MEDS/ALLERGIES REVIEWED: Yes ASA RATING ASA RATING: II AIRWAY ASSESSMENT Airway Assessment Airway patency, oral function limitations, presence of caps, crowns, dentures, partials, and ability to extend neck assessed. AIRWAY ASSESSMENT: Yes MALLAMPATI SCORE MALLAMPATI SCORE: II PRE-SEDATION ASSESSMENT PRE-SEDATION ASSESSMENT: Yes NEVILLE HANNA MD May 27, 2020 13:22
[2020-05-27 13:41] VITALS: BP 133/74
[2020-05-27] MEDS ORDERED: HEPARIN for IV BOLUS 10,000 UNIT/10 ML VIAL. IART ONE (14:00)
[2020-05-27] MEDS ORDERED: MIDAZOLAM HCL/PF 2 MG/2 ML VIAL. IV ONE (14:00)
[2020-05-27] MEDS ORDERED: NITROGLYCERIN 200 MCG/2 ML SYRINGE FOR CATH/VASC LAB. IART ONE (14:00)
[2020-05-27] MEDS ORDERED: VERAPAMIL 5 MG/2 ML VIAL. IART ONE (14:00)
[2020-05-27] MEDS ORDERED: fentaNYL PF VIAL 100 MCG/2 ML VIAL IV ONE (14:00)
[2020-05-27] MEDS ORDERED: LIDOCAINE 1% PF 2 ML VIAL. INJ ONE (14:00)
[2020-05-27] MEDS ORDERED: ASPIRIN ENTERIC COATED 81 MG TABLET.DR. PO SCH (14:00)
[2020-05-27] MEDS ORDERED: IOHEXOL 350 MG/ML 100 ML VIAL. IART ONE (14:00)
--- NOTE | 2020-05-27 14:05 | PDOC3 ---
Discharge Summary Visit Information Date of Admission: May 26, 2020 Date of Discharge: May 28, 2020 Admitting Diagnosis: Chest pain Final Diagnosis Problems Medical Problems: (1) Chest pain Status: Acute Brief Hospital Course Allergies Allergies Coded Allergies Type Severity Reaction Last Updated Verified No Known Drug Allergies 05/03/17 No Vital Signs Vital Signs Date Time Temp Pulse Resp B/P (MAP) Pulse Ox O2 Delivery O2 Flow Rate FiO2 05/27/20 13:47 62 05/27/20 13:41 13 100 Nasal Cannula 2.0 05/27/20 10:36 98.5 146/85 (105) 98.5 Lab Results Laboratory Tests Test 05/26/20 11:00 05/26/20 11:20 05/26/20 14:40 05/26/20 16:51 White Blood Count 8.3 x10^3/uL (4.0-11.0) Red Blood Count 4.90 x10^6/uL (4.30-5.70) Hemoglobin 15.6 g/dL (13.0-17.5) Hematocrit 46.7 % (39.0-53.0) Mean Corpuscular Volume 95 fL (79-100) Mean Corpuscular Hemoglobin 32 pg (25-35) Mean Corpuscular Hemoglobin Concent 33 g/dL (31-37) Red Cell Distribution Width 13.1 % (11.5-14.5) Platelet Count 178 x10^3/uL (140-400) Neutrophils (%) (Auto) 58 % (31-73) Lymphocytes (%) (Auto) 31 % (24-48) Monocytes (%) (Auto) 8 % (0-9) Eosinophils (%) (Auto) 2 % (0-3) Basophils (%) (Auto) 1 % (0-3) Neutrophils # (Auto) 4.8 x10^3/uL (1.8-7.7) Lymphocytes # (Auto) 2.5 x10^3/uL (1.0-4.8) Monocytes # (Auto) 0.7 x10^3/uL (0.0-1.1) Eosinophils # (Auto) 0.2 x10^3/uL (0.0-0.7) Basophils # (Auto) 0.1 x10^3/uL (0.0-0.2) Sodium Level 140 mmol/L (136-145) Potassium Level 4.3 mmol/L (3.5-5.1) Chloride Level 105 mmol/L (98-107) Carbon Dioxide Level 30 mmol/L (21-32) Anion Gap 5 (6-14) Blood Urea Nitrogen 12 mg/dL (8-26) Creatinine 0.9 mg/dL (0.7-1.3) Estimated GFR (Cockcroft-Gault) 84.7 Glucose Level 180 mg/dL (70-99) Calcium Level 8.5 mg/dL (8.5-10.1) Troponin I Quantitative < 0.017 ng/mL (0.000-0.055) < 0.017 ng/mL (0.000-0.055) Hemoglobin A1c 12.8 % (4.8-5.6) Triglycerides Level 87 mg/dL (0-150) Cholesterol Level 110 mg/dL (0-200) LDL Cholesterol, Calculated 62 mg/dL (0-100) VLDL Cholesterol, Calculated 17 mg/dL (0-40) Non-HDL Cholesterol Calculated 79 mg/dL (0-129) HDL Cholesterol 31 mg/dL (40-60) Cholesterol/HDL Ratio 3.5 Glucose (Fingerstick) 136 mg/dL (70-99) Test 05/26/20 16:55 05/26/20 19:25 05/27/20 07:37 05/27/20 09:50 Troponin I Quantitative < 0.017 ng/mL (0.000-0.055) Glucose (Fingerstick) 259 mg/dL (70-99) 230 mg/dL (70-99) SARS-CoV-2 Antigen (Rapid) Negative (NEGATIVE) Test 05/27/20 11:29 Glucose (Fingerstick) 242 mg/dL (70-99) Laboratory Tests Test 05/26/20 14:40 05/26/20 16:51 05/26/20 16:55 05/26/20 19:25 Troponin I Quantitative < 0.017 ng/mL (0.000-0.055) < 0.017 ng/mL (0.000-0.055) Glucose (Fingerstick) 136 mg/dL (70-99) 259 mg/dL (70-99) Test 05/27/20 07:37 05/27/20 09:50 05/27/20 11:29 Glucose (Fingerstick) 230 mg/dL (70-99) 242 mg/dL (70-99) SARS-CoV-2 Antigen (Rapid) Negative (NEGATIVE) Brief Hospital Course Mr Pino is a 64-year-old male with past medical history DM2, hypertension, who presents to the ER with complaint of worsening intermittent chest pain for the past 4-5 days. He states his pain is aggravated by deep inspiration, coughing, and notes his chest pain is reproducible. He has a history of bilateral lower extremity swelling, right greater than left, for years. He denies any trauma. Initial troponin <0.017. Admitted patient for further medical management. EKG concerning for left axis deviation and left anterior fascicular block looks to be LBBB as well; consult placed to cardiology Echocardiogram from 2018 showed EF 60% with grade 1 diastolic dysfunction; will order limited echocardiogram to evaluate Troponins remain negative. Hemoglobin A1c returned at 12.8. Pain is physically reproducible consistent with costochondritis. Also with subjective history of GERD. He notes to me that he does follow-up with Dr. Mirza and had an normal visit within the last year and a stress test 2 years ago and coronary angiogram in 2012 with no interventions necessary. He follows up with Dr. Mirza annually. No overnight telemetry events. Echo read with Left ventricle systolic function is mildly impaired. The Ejection Fraction is 40-45%. Transmitral Doppler flow pattern is Grade I-abnormal relaxation pattern. Mild aortic regurgitation. Trace mitral regurgitation. Trace tricuspid valve regurgitation noted. The PA pressure was estimated at 15 mmHg. There is no evidence of significant pericardial effusion. Due to abnormal systolic function patient underwent coronary angiography with no significant coronary artery disease found and no interventions performed. Treated for pectoralis major muscle strain and discharged home with recommendations to increase his statin medication given his elevated A1c at 12.8. Continue outpatient follow-up annually with Dr. Mirza. A/P: Chest pain - GERD with costochondritis and pulled left pectoralis major DM2 - A1c 12.8 Hypertension Morbid obesity Greater than 30 minutes spent on d/c home with self care. Discharge Information Condition at Discharge: Improved Follow Up: Weeks (1) Disposition/Orders: D/C to Home Scheduled Amlodipine/Atorvastatin (Caduet 5 Mg-40 Mg Tablet) 1 Each Tablet, 1 EACH PO 1X, (Reported) Entered as Reported by: ÁLVARO ORTIZ on 04/26/17453 Last Action: Reviewed on 05/26/20 1635 by KALLI TUCKER MD Aspirin (Children's Aspirin) 81 Mg Tab.chew, 1 TAB PO DAILY for HEART for 30 Days, #30 Ref 0 (Reported) Entered as Reported by: Kevin Law on 05/27/20 1704 Insulin Glargine,Hum.rec.anlog (Lantus Solostar) 100 Unit/1 Ml Insuln.pen, 62 UNIT SQ BID, #15 Ref 3 (Reported) Entered as Reported by: ÁLVARO ORTIZ on 04/26/17453 Last Action: Converted on 05/26/20 1624 by Kevin Law Discontinued Medications Glyburide (Glyburide) 5 Mg Tablet, 1 TAB PO BID, #60 Ref 5 (Reported) Entered as Reported by: ÁLVARO ORTIZ on 04/26/17453 Last Action: Discontinued on 05/26/20 1542 by Kevin Law Ranitidine Hcl (Ranitidine Hcl) 150 Mg Capsule, 1 CAP PO BID, #60 Ref 5 (Reported) Entered as Reported by: ÁLVARO ORTIZ on 04/26/17453 Last Action: Discontinued on 05/26/20 1445 by Kevin Law Sitagliptin Phos/Metformin Hcl (Janumet 50-1,000 Mg Tablet) 1 Each Tablet, 1 TAB PO BID, #180 Ref 1 (Reported) Entered as Reported by: ÁLVARO ORTIZ on 04/26/17453 Last Action: Discontinued on 05/26/20 1542 by Kevin Law Justicifation of Admission Dx: Justifications for Admission: Justification of Admission Dx: Yes SARAH PALACIOS MD May 27, 2020 14:05
--- NOTE | 2020-05-27 14:28 | CARD ---
MR#: [id number] Date of Study: 05/27/2020 Ordering Physician: NEVILLE HANNA, Referring Physician: NEVILLE HANNA, Tech: RT Marine(R) APPROVED REPORT Technologist: RT Marine(R) Nurse: Mary Paredes RN Procedure(s) performed: Left heart catheterization, selective coronary angiography and left ventricul ography via right transradial approach FL TIME: 3.0 MINS DOSE: 69 GYCM2 CONTRAST: 126 ML MODERATE SEDATION: 24 MINS INDICATION The indication(s) include : unstable angina . [facility] Clinical Frailty Scale [facility] Clinical Frailty Scale: Managing Well Heart Failure Heart Failure: Yes If Yes, Newly Diagnosed: Yes If Yes, HF Type: Diastolic If Yes, NYHA Class: Class III CASE TECHNIQUE IV conscious sedation was used throughout procedure with appropriate monitoring and was performed in the presence of a registered nurse who was an independent trained observer other than the physician p erforming the procedure. During this case, Fluoroscopy and low osmolar contrast were used for imaging . Specimen(s) Removed: No Estimated Blood loss: 10 cc's. PROCEDURE NARRATIVE After explaining the risks, benefits and alternative options, informed consent was obtained from syeda ent. Patient was brought to the cardiac Manager Policy and right wrist was prepped and draped in the usual fashion after confirming a positive modified Bakari's test. Arterial access was obtained in the righ t radial artery and a 6 Kittitian sheath was inserted. 6 Kittitian Tyler catheter was used to perform iliana ective angiography of the left and right coronary arteries. 6 Kittitian pigtail catheter was used to pe rform left ventriculography. Patient tolerated the procedure well. Hemostasis was achieved using TR band. There were no immediate complications. The following findings were noted. FINDINGS 1. Hemodynamics: Left ventricular end-diastolic pressure of 17 mmHg. No pullback gradient across th e aortic valve. 2. Left ventriculography: Mild left ventricle systolic dysfunction with ejection fraction estimated at 45%. No significant mitral regurgitation seen. 3. Coronary angiography: a. The left main coronary artery arose from the left sinus of Valsalva, gave rise to the left anteri or descending and left circumflex arteries and did not show any significant stenosis. b. The left anterior descending artery showed 30% stenosis in the midsegment. The third diagonal br anch which is a small caliber vessel showed 40% stenosis in the proximal segment c. The left circumflex artery showed 20% stenosis in the proximal to mid segment. d. The right coronary artery was a large and dominant vessel arising from the right sinus of Valsalv a that did not show any significant stenosis. Conclusion 1. No significant coronary disease 2. Mild left ventricle systolic dysfunction with ejection fraction estimated at 45% Recommendations Medical Therapy Signed by : Neville Hanna, Electronically Approved : 05/27/2020 14:28:18
[2020-05-27 14:35] VITALS: BP 119/50
[2020-05-27 14:55] VITALS: BP 147/82
[2020-05-27] MEDS ORDERED: LIDOCAINE 1% Multi-Dose 20 ML VIAL. INJ ONE (15:00)
[2020-05-27] MEDS ORDERED: ASPI81TA59 PO (17:04)
--- NOTE | 2020-05-27 17:35 | NUR ---
DISCHARGED PATIENT TO HOME. DISCHARGE INSTRUCTIONS GIVEN. PIV AND HEART MONITOR REMOVED. ESCORTED PATIENT OFF UNIT PER AMBULATION INTO A PRIVATE VEHICLE.
== END 2020-05-27 17:35 | disposition home or self-care (01) | DRG 205 ==
LOC: ER 10:17 → 2 NORTH 12:36 → OBSVTOIN 05-27 12:11
PROVIDERS: ADMIT Family Medicine; ATTEND Family Medicine
PROC: 4A023N7 Measurement of Cardiac Sampling and Pressure, Left Heart, Percutaneous Approach (ICD-10-PCS; principal; 2020-05-27)
PROC: B2111ZZ Fluoroscopy of Multiple Coronary Arteries using Low Osmolar Contrast (ICD-10-PCS; 2020-05-27)
PROC: B2151ZZ Fluoroscopy of Left Heart using Low Osmolar Contrast (ICD-10-PCS; 2020-05-27)
DX: M94.0 Chondrocostal junction syndrome [Tietze] (principal); I50.43 Acute on chronic combined systolic (congestive) and diastolic (congestive) heart failure; I42.9 Cardiomyopathy, unspecified; E78.5 Hyperlipidemia, unspecified; E11.9 Type 2 diabetes mellitus without complications; Z20.822 Contact with and (suspected) exposure to COVID-19; K21.9 Gastro-esophageal reflux disease without esophagitis; I25.10 Atherosclerotic heart disease of native coronary artery without angina pectoris; I11.0 Hypertensive heart disease with heart failure; E66.01 Morbid (severe) obesity due to excess calories; M19.90 Unspecified osteoarthritis, unspecified site; I44.4 Left anterior fascicular block; Z68.36 Body mass index [BMI] 36.0-36.9, adult; Z79.899 Other long term (current) drug therapy
CPT/HCPCS: 36415; 71046; 80048; 80061; 82962; 83036; 83880; 84443; 84484; 85025; 87426; 93005; 93306; 93458; 93971; 99152; 99153; 99285; C1769; C1894; G0378; G0379; J1644; J1815; J2250; J3010; J3490; Q9967; U0003